=== PATIENT | female | born 1980 | race Caucasian/White ===

== ENCOUNTER 2021-02-24 19:49 | Emergency (ER) | payer OTHER ==
[2021-02-24 19:56] VITALS: BP 115/79; PULSE 88; TEMP 98.9; BMI 29.1
[2021-02-24] MEDS ORDERED: LIDOCAINE 5% TOPICAL PATCH TP ONE (22:23)
[2021-02-24] MEDS ORDERED: LIDOCAINE 5% TOPICAL PATCH ONE (22:29)
[2021-02-25] MEDS ORDERED: LIDOCAINE PATCH REMOVAL MC ONE (11:00)
== END 2021-02-24 22:50 | disposition home or self-care (01) ==
LOC: JERFT 19:49 → JER 19:49 → JERFT 22:50
DX: M54.12 Radiculopathy, cervical region (principal)
CPT/HCPCS: 72040-TC; 73030-TC-RT-FY; 99284-25

== ENCOUNTER 2021-03-29 15:50 | Emergency (ER) | payer OTHER ==
[2021-03-29 16:12] VITALS: BP 113/70; PULSE 82; BMI 28.1
[2021-03-29 16:13] VITALS: TEMP 98.2
[2021-03-29] MEDS ORDERED: KETOROLAC TROMETHAMINE 30 MG/1 ML VIAL IM ONE (16:34)
[2021-03-29] MEDS ORDERED: KETOROLAC TROMETHAMINE 30 MG/1 ML VIAL ONE (16:34)
== END 2021-03-29 16:45 | disposition home or self-care (01) ==
LOC: JERFT 15:50
PROC: 3E0233Z Introduction of Anti-inflammatory into Muscle, Percutaneous Approach (ICD-10-PCS; principal; 2021-03-29)
DX: K08.89 Other specified disorders of teeth and supporting structures (principal)
CPT/HCPCS: 99284-25

== ENCOUNTER 2022-08-08 17:18 | Emergency (ER) | payer OTHER ==
[2022-08-08 17:31] VITALS: BP 112/64; PULSE 94; RESP 18; BMI 27.7
[2022-08-08] MEDS ORDERED: ACETAMINOPHEN 500 MG TABLET (FP) PO ONE (19:42)
[2022-08-08] MEDS ORDERED: ACETAMINOPHEN 500 MG TABLET (FP) ONE (19:46)
[2022-08-08 21:12] VITALS: TEMP 99.2
== END 2022-08-08 21:12 | disposition home or self-care (01) ==
LOC: JERFT 17:18
DX: R50.9 Fever, unspecified (principal)
CPT/HCPCS: 0241U-QW; 71046-TC-FY; 99284-25

== ENCOUNTER 2023-04-16 08:51 | Emergency (ER) | payer OTHER ==
[2023-04-16 08:58] VITALS: BP 100/51; PULSE 95; RESP 18; TEMP 98.5; BMI 28.1
== END 2023-04-16 10:26 | disposition home or self-care (01) ==
LOC: JER 08:51
DX: J02.0 Streptococcal pharyngitis (principal)
CPT/HCPCS: 87651; 99283-25

== ENCOUNTER 2023-10-19 20:28 | Emergency (ER) | payer SELFPAY ==
[2023-10-19 20:33] VITALS: BP 95/66; PULSE 98; RESP 20; TEMP 98; BMI 26.6
[2023-10-19] MEDS: PHENYLEPHRINE 0.25% NASAL SPRAY 15 ML BOTTLE NS SCH (22:22)
== END 2023-10-19 22:31 | disposition home or self-care (01) ==
LOC: JERFT 20:28
DX: R09.81 Nasal congestion (principal); J06.9 Acute upper respiratory infection, unspecified; F17.210 Nicotine dependence, cigarettes, uncomplicated
CPT/HCPCS: 70160-TC-FY; 99283-25